=== PATIENT | female | born 1960 | race Two or more races ===

== ENCOUNTER 2020-02-21 09:39 | Outpatient (CLI) | payer OTHER | END 2020-02-21 15:00 | disposition home or self-care (01) | LOC: LAB 09:39 | PROVIDERS: ATTEND Surgery | DX: Z11.59 Encounter for screening for other viral diseases (principal); Z20.828 Contact with and (suspected) exposure to other viral communicable diseases ==

== ENCOUNTER 2020-03-10 06:00 | Day surgery (SDC) | payer OTHER | END 2020-03-10 10:25 | disposition home or self-care (01) | LOC: CIR.AMB 06:00 → AMB-ENDOS 06:00 → CIR.AMB 14:00 | PROVIDERS: ATTEND Surgery | DX: K62.89 Other specified diseases of anus and rectum (principal); K64.4 Residual hemorrhoidal skin tags; Z12.11 Encounter for screening for malignant neoplasm of colon ==

== ENCOUNTER 2020-07-22 10:28 | Outpatient (CLI) | payer OTHER | END 2020-07-22 10:42 | disposition home or self-care (01) | LOC: RAD 10:28 | PROVIDERS: ATTEND Surgery Plastic and Reconstructive Surgery | DX: Z01.811 Encounter for preprocedural respiratory examination (principal) ==